=== PATIENT | female | born 1960 | race Caucasian/White ===

== ENCOUNTER 2020-10-20 15:20 | Emergency (ER) | payer BC ==
[~2020-10-20] VITALS: Ht 157.5 cm; Wt 83.3 kg
[2020-10-20] MEDS ORDERED: PAXI10TA12 PO (15:28)
--- NOTE | 2020-10-20 16:58 | REP ---
INDICATION: fall/limited ROM/pain/bruising. COMPARISON: None. TECHNIQUE: Three views of the right shoulder. FINDINGS: There is a slightly overriding fracture of the distal clavicle. Glenohumeral articulation is normally aligned. No scapular or humeral fracture is seen. Periarticular soft tissues are unremarkable. IMPRESSION: Acute fracture distal clavicle on the right side. <Electronically signed by Preston Oden > 10/20/20 [id number]
--- NOTE | 2020-10-20 16:59 | REP ---
INDICATION: fall/limited ROM/pain/bruising. COMPARISON: None. TECHNIQUE: Four views of the right great toe are obtained. FINDINGS: Four views of the right great toe demonstrate a nondisplaced fracture of the proximal phalanx near its distal end. There is associated soft tissue swelling.. . No opaque foreign body noted. IMPRESSION: Nondisplaced fracture distal aspect of the proximal phalanx of the great toe with associated soft tissue swelling. <Electronically signed by Preston Oden > 10/20/20 [id number]
--- NOTE | 2020-10-20 17:55 | REPVR ---
PROCEDURE INFORMATION: Exam: XR Right Ribs with PA Chest Exam date and time: 10/20/2020 5:21 PM Age: 60 years old Clinical indication: Other: Fell; Additional info: Fell/tender TECHNIQUE: Imaging protocol: XR Right ribs with PA chest. Views: 3 views COMPARISON: [place] Shoulder, complete 10/20/2020 4:08 PM FINDINGS: Lungs: Lungs are free of infiltrates or masses. Pleural spaces: No pleural effusion. Heart/Mediastinum: Heart and mediastinal contours are normal. Bones/joints: No acute displaced rib fracture. No destructive or blastic rib lesion. No pneumothorax or other ancillary evidence of rib trauma. IMPRESSION: Negative right rib series with single view chest. No acute fracture or acute intrathoracic process. Electronically signed by: Phu Palacio On 10/20/2020 17:54:17 PM
[2020-10-20 18:16] VITALS: BP 139/74
== END 2020-10-20 18:35 | disposition home or self-care (01) ==
LOC: M ED 15:20
DX: S42.001A Fracture of unspecified part of right clavicle, initial encounter for closed fracture (principal); S92.404A Nondisplaced unspecified fracture of right great toe, initial encounter for closed fracture; W01.0XXA Fall on same level from slipping, tripping and stumbling without subsequent striking against object, initial encounter; Y92.9 Unspecified place or not applicable; Y93.9 Activity, unspecified; Y99.9 Unspecified external cause status; Z79.899 Other long term (current) drug therapy; Z88.1 Allergy status to other antibiotic agents; Z88.2 Allergy status to sulfonamides; Z88.0 Allergy status to penicillin

== ENCOUNTER → 2020-11-05 | Outpatient (CLI) | payer BC ==
[~2020-11-05] MED LIST: PAXI10TA12 PO
--- NOTE | 2020-11-05 11:02 | REP ---
INDICATION: NONDISPLACED FX LATERAL END CLAVICLE. COMPARISON: Right shoulder dated 10/20/2020 TECHNIQUE: Right clavicle two views. FINDINGS: There is a fracture of the distal clavicle with the fracture fragments overlapped. The distal fracture fragment is elevated approximately 1 shaft width. The distal fracture fragment was elevated approximately 1/2 shaft width previously. The acromioclavicular joint is unremarkable. The glenohumeral joint is unremarkable. IMPRESSION: Right distal clavicle fracture. There is elevation of the distal fracture fragment that is slightly greater than on the comparison study. <Electronically signed by He Watson > 11/05/20 [id number]
--- NOTE | 2020-11-05 11:06 | REP ---
INDICATION: FX RIGHT GREAT TOE. COMPARISON: None. TECHNIQUE: Three views FINDINGS: Soft tissue swelling. No evidence of fracture or dislocation. IMPRESSION: Soft-tissue swelling patent no fracture or dislocation. <Electronically signed by Jesus Manuel Hampton > 11/05/20 [id number]
== END ==
LOC: M SOG 08:10
PROVIDERS: ATTEND Orthopaedic Surgery Adult Reconstructive Orthopaedic Surgery
DX: S42.034A Nondisplaced fracture of lateral end of right clavicle, initial encounter for closed fracture (principal); S92.911A Unspecified fracture of right toe(s), initial encounter for closed fracture; X58.XXXA Exposure to other specified factors, initial encounter; Y92.9 Unspecified place or not applicable; Y93.9 Activity, unspecified; Y99.9 Unspecified external cause status

== ENCOUNTER → 2020-12-06 | Outpatient (CLI) | payer BC ==
--- NOTE | 2020-12-06 11:36 | REP ---
INDICATION: CLAVICLE FX. COMPARISON: Comparison clavicle radiographs are from November 05, 2020. TECHNIQUE: Three views of the right clavicle are provided. FINDINGS: There is an obliquely oriented distal clavicle fracture on the right with a slight superior displacement of the distal fragment. The AC joint is normally aligned. Fracture alignment is slightly improved from the comparison study November 05, 2020. Fracture margins are still a hazy consistent with early healing in there is a little callus formation visible. IMPRESSION: Healing distal clavicle fracture on the right. <Electronically signed by Preston Oden > 12/06/20 [id number]
--- NOTE | 2020-12-06 11:36 | REP ---
INDICATION: CLAVICLE FX. COMPARISON: November 05, 2020 right great toe series. October 20, 2020 study is also reviewed. TECHNIQUE: Three views of the right forefoot are provided. FINDINGS: Three views of the right forefoot demonstrate an obliquely oriented fracture through the proximal phalanx of the great toe best seen on lateral projection. This is improved in alignment when compared with the original CT study of October 20, 2020. There is minimal callus formation medially. IMPRESSION: Healing proximal phalangeal fracture right great toe. <Electronically signed by Preston Oden > 12/06/20 0545
== END ==
LOC: M SOG 08:53
PROVIDERS: ATTEND Orthopaedic Surgery Adult Reconstructive Orthopaedic Surgery
DX: S42.034A Nondisplaced fracture of lateral end of right clavicle, initial encounter for closed fracture (principal); S92.911A Unspecified fracture of right toe(s), initial encounter for closed fracture; X58.XXXA Exposure to other specified factors, initial encounter; Y92.9 Unspecified place or not applicable

== ENCOUNTER → 2021-01-08 | Outpatient (CLI) | payer BC ==
--- NOTE | 2021-01-08 16:27 | REP ---
INDICATION: FX OF RT TOE NONDISPLACED FX OF LATERAL END OF RT CLAV. COMPARISON: 12/07/2019 TECHNIQUE: Two views FINDINGS: The previously described fracture involving the distal clavicle is now seen with indistinct margins consistent with callus formation and healing. The alignment is unchanged. There is no new fracture. IMPRESSION: Healing clavicular fracture. <Electronically signed by Ko Carias > 01/08/21 [id number]
--- NOTE | 2021-01-08 16:27 | REP ---
INDICATION: FX OF RT TOE. COMPARISON: 12/06/2020 TECHNIQUE: Two views 1st digit right foot FINDINGS: The previously described fracture involving the proximal phalanx of the 1st digit has healed. There is no acute fracture. IMPRESSION: Healed fracture <Electronically signed by Ko Carias > 01/08/21 [id number]
== END ==
LOC: M SOG 15:27
PROVIDERS: ATTEND Orthopaedic Surgery Adult Reconstructive Orthopaedic Surgery
DX: S42.034D Nondisplaced fracture of lateral end of right clavicle, subsequent encounter for fracture with routine healing (principal); S92.911D Unspecified fracture of right toe(s), subsequent encounter for fracture with routine healing

== ENCOUNTER → 2022-02-16 | Outpatient (REF) | payer BC ==
[2022-02-16 18:24] LABS: RSV AMPLIFICATION NEGATIVE (NEGATIVE)
== END ==
LOC: M LAB REF 16:29
PROVIDERS: ATTEND Nurse Practitioner Adult Health
DX: J06.9 Acute upper respiratory infection, unspecified (principal)

== ENCOUNTER → 2022-11-16 | Outpatient (CLI) | payer BC ==
[~2022-11-16] MED LIST changes: -PAXI10TA12 PO; +PAXI10TA13 PO
== END ==
LOC: M WUC 15:13
PROVIDERS: ATTEND Nurse Practitioner Adult Health
DX: M79.672 Pain in left foot (principal)

== ENCOUNTER → 2023-01-07 | Outpatient (CLI) | payer BC ==
[2023-01-07 18:32] LABS: BASO % 0.3 % (0.0-1.0); EOS # 0.2 10^3/uL (0.0-0.5); EOS % 2.5 % (0.0-3.0); HEMATOCRIT 41.4 % (36.0-47.0); HEMOGLOBIN 13.6 g/dl (12.0-15.5); LYMPH # 2.4 10^3/uL (1.5-5.0); LYMPH % 31.9 % (24.0-44.0); MEAN CORPUSCULAR HEMOGLOBIN 29.7 pg (27.0-33.0); MEAN CORPUSCULAR HGB CONC 32.9 g/dl (32.0-36.5); MEAN CORPUSCULAR VOLUME 90.4 fl (80.0-96.0); MONO # 0.5 10^3/uL (0.0-0.8); MONO % 6.6 % (2.0-8.0); NEUTROPHILS # 4.4 10^3/uL (1.5-8.5); NEUTROPHILS % 58.4 % (36.0-66.0); PLATELET COUNT, AUTOMATED 341 10^3/uL (150-450); RED BLOOD COUNT 4.58 10^6/uL (4.00-5.40); WHITE BLOOD COUNT 7.5 10^3/uL (4.0-10.0)
[2023-01-07 18:36] LABS: URIC ACID 6.4 MG/DL (3.1-7.8)
[2023-01-07 18:38] LABS: C REACTIVE PROTEIN QUANTITATIV < 0.40 MG/DL (<1.0)
[2023-01-07 18:40] LABS: ALKALINE PHOSPHATASE 97 U/L (46-116); ALT/SGPT 14 U/L (7.0-40); AST/SGOT 12 U/L (<34); BILIRUBIN,TOTAL 0.3 MG/DL (0.3-1.2); BLOOD UREA NITROGEN 18 MG/DL (9-23); CALCIUM LEVEL 9.5 MG/DL (8.3-10.6); CARBON DIOXIDE LEVEL 31 MMOL/L (20-31); CHLORIDE LEVEL 106 MMOL/L (98-107); CREATININE FOR GFR 0.67 MG/DL (0.55-1.30); GLOMERULAR FILTRATION RATE > 60.0 (>45); GLUCOSE, FASTING 101 MG/DL (74-106); RHEUMATOID FACTOR QUANT < 3.5 IU/ML (<14); SODIUM LEVEL 144 MMOL/L (136-145); TOTAL PROTEIN 7.1 G/DL (5.7-8.2)
[2023-01-07 18:50] LABS: ERYTHROCYTE SEDIMENTATION RATE 9 mm/hr (0-30)
== END ==
LOC: M PLALAB 14:56
PROVIDERS: ATTEND Student in an Organized Health Care Education/Training Program
DX: M25.475 Effusion, left foot (principal)